=== PATIENT | male | born 1980 | race Caucasian/White ===

== ENCOUNTER 2018-11-11 11:28 | Inpatient (IN) ==
[2018-11-11] MEDS ORDERED: Morphine Inj 4 MG/ML Vial IV.PUSH ONE (12:12)
[2018-11-11] MEDS ORDERED: Sod Chloride 0.9% Inj 1,000 ML IV.SIG ONE (12:12)
--- NOTE | 2018-11-11 12:19 | ED ---
HPI General Chief Complaint: Abdominal Pain Stated Complaint: GI Time Seen by Provider: 11/11/18 12:01 Source: patient and RN notes reviewed Mode of arrival: ambulatory Limitations: no limitations History of Present Illness HPI narrative: 38-year-old male presents to the emergency department for evaluation of dark urine, white stools, yellowing of the skin and eyes. Patient was here recently on November 03, 2018 for asthma exacerbation. At that time, his LFTs were noted to be elevated, but he did not have any of the other symptoms at that time. However, for the past 3 days, he has noticed decreased appetite, yellowing of the skin and eyes, dark urine, light stools, right upper quadrant abdominal pain. He states he still feels short of breath due to asthma exacerbation and has hoarseness as well. Patient denies any alcohol use. He denies any other symptoms or complaints. Moderate severity. MD complaint: Reports abdominal pain Onset (ago): day(s) (3) Pain Consistency: constant Location: Reports RUQ Severity: moderate Severity scale (1-10): 4 Quality: Reports aching Radiation: Reports none Migration to: Reports no migration Relieving factors: nothing Exacerbating factors: nothing Associated symptoms: Denies diarrhea, fever, chills, constipation, hematemesis and hematochezia Related Data Home Medications Medication Instructions Recorded Confirmed albuterol sulfate [Ventolin HFA] 1 puff INHALATION Q4-6H PRN 11/03/18 11/11/18 azithromycin [Zithromax] 250 mg PO DAILY 11/11/18 11/11/18 tiotropium bromide [Spiriva 2 puff INHALATION DAILY 11/11/18 11/11/18 Respimat] Previous Rx's Medication Instructions Recorded benzonatate [Tessalon Perles] 100 mg PO TID PRN #10 cap 11/03/18 Allergies Allergy/AdvReac Type Severity Reaction Status Date / Time propofol Allergy Seizures Verified 11/11/18 12:17 Review of Systems ROS: all other systems reviewed are negative [facility] Social History Social History Substance History: No History of Abuse Second Hand Smoke Exposure: No Smoking Status: Never smoker How Often Do You Have a Drink Containing Alcohol: Monthly or less Recent Travel in [facility] within the Last 8 Weeks: No Recent Out of Country Travel within the Last 8 Weeks: No Exam Narrative Exam Narrative: GENERAL: Well-nourished, well-developed male patient, afebrile. Patient is jaundiced SKIN: Focused skin assessment warm/dry. HEAD: Normocephalic. Atraumatic EYES: No injection or drainage. NECK: Supple, trachea midline. No JVD or lymphadenopathy. CARDIOVASCULAR: Regular rate and rhythm without murmurs, gallops, or rubs. RESPIRATORY: Breath sounds equal bilaterally. No accessory muscle use. Lung sounds are clear to auscultation GASTROINTESTINAL: Abdomen soft and nondistended. Patient has tenderness to palpation over the right upper quadrant. MUSCULOSKELETAL: No cyanosis, or edema. BACK: Nontender without obvious deformity. No CVA tenderness. Course Initial Documented Vital Signs Temperature 99.2 F 11/11/18 11:56 Pulse Rate 92 H 11/11/18 11:56 Respiratory Rate 18 11/11/18 11:56 Blood Pressure 151/89 H 11/11/18 11:56 Pulse Oximetry 96 11/11/18 11:56 Last Documented Vital Signs Temperature 99.2 F 11/11/18 11:56 Pulse Rate 98 H 11/11/18 15:44 Respiratory Rate 16 11/11/18 15:44 Blood Pressure 136/67 11/11/18 15:44 Pulse Oximetry 100 11/11/18 15:44 Medical Decision Making DAMASO Attestation DAMASO supervised visit: Yes Attestation: I, Dr. Hinson, have reviewed the advance practice practitioner's documentation and am in agreement, met with the patient face to face, made the diagnosis, and the medical decision making was done by me. *My assessment and Findings: Patient seen and evaluated with PA, please see PA note for further details. Here with right upper quadrant abdominal pains, appearing jaundice, with dark colored urine and light stools. Lab work shows significant liver enzyme abnormalities. CAT scan is showing a questionable stone with in the gallbladder and bile duct area, and possible signs of cholecystitis. Ultrasound shows some spots in the liver as well that are concerning and needs further characterization using MRI. At this point, case had been discussed with general surgery and that they are recommending medical admission for further evaluation. MDM Narrative Medical decision making narrative: 38-year-old male presents to the emergency department for jaundice, decreased appetite, right upper quadrant abdominal pain. IV access obtained. CBC, CMP, lipase, magnesium, PTT, PT/INR are ordered and pending. Ultrasound of the right upper quadrant is ordered and pending. CT abdomen/pelvis with IV contrast is ordered and pending. Patient is given normal saline 1 L IV bolus, morphine 4 mg IV, Zofran 4 mg IV. Patient is given DuoNeb x3 for asthma. CBC shows no acute abnormality. CMP shows elevated bilirubin 8.7, AST 833, ALT 2809. Lipase is 127. Magnesium is 2.5. PTT is 27.2. PT/INR is 11.1/1.1. US shows Fatty liver with 2 areas of hypoechogenicity somewhat masslike may be focal sparing, however further characterization with abdominal MRI with and without contrast is suggested which could be done as a nonemergent study to further evaluate and exclude underlying mass. The patient's CT examination was negative without demonstrable masses; No definite gallstones by ultrasound, however questionable small stones seen on the patient's CT examination and the gallbladder wall appears slightly thickened with questionable trace of pericholecystic fluid. Possibility of cholecystitis should be entertained in appropriate clinical setting. CT abdomen/pelvis shows Questionable tiny stone within the gallbladder appears slightly distended with haziness of the Gerota's fascia on the right side partially extending into the anterior perinephric space and Morison's pouch. The exact source is not certain, however inflammatory process is a primary consideration. The liver appears fatty. General surgeon and hospitalist are paged. Talk to Dr. Alvares, on-call for general surgery who recommends the patient be admitted with a consult to him. Patient is admitted to Dr. Mercado. Medical Screen Exam Complete: Yes Emergency Medical Condition: Yes Differential Diagnosis Differential Diagnosis: Cholelithiasis versus choledocholithiasis versus bile duct obstruction versus acute liver failure Medical Records Medical records reviewed: Yes I reviewed the patient's medical records. Lab Data Result diagrams: 11/11/18 12:30 11/11/18 12:30 Lab Results 11/11/18 11/11/18 11/11/18 Range/Units 12:30 12:30 12:30 WBC 5.6 (4.0-11.0) th/mm3 RBC 5.45 (4.50-5.90) mil/mm3 Hgb 15.7 (13.0-17.0) gm/dL Hct 47.1 (39.0-51.0) % MCV 86.4 (80.0-100.0) fL MCH 28.9 (27.0-34.0) pg MCHC 33.4 (32.0-36.0) % RDW 15.4 (11.6-17.2) % Plt Count 292 D (150-450) th/mm3 MPV 7.4 (7.0-11.0) fL Neut % (Auto) 39.1 (16.0-70.0) % Lymph % (Auto) 45.5 H (9.0-44.0) % Crane % (Auto) 11.4 H (0.0-8.0) % Eos % (Auto) 2.6 (0.0-4.0) % Baso % (Auto) 1.4 (0.0-2.0) % Neut # (Auto) 2.2 (1.8-7.7) th/mm3 Lymph # (Auto) 2.6 (1.0-4.8) th/mm3 Crane # (Auto) 0.6 (0.0-0.9) th/mm3 Eos # (Auto) 0.1 (0.0-0.4) th/mm3 Baso # (Auto) 0.1 (0.0-0.2) th/mm3 WBC Differential . Differential Comment Auto diff final PT 11.1 (9.8-11.6) sec INR 1.1 Ratio APTT 27.2 (23.4-31.7) sec Sodium 139 (136-145) meq/L Potassium 4.3 (3.5-5.1) meq/L Chloride 106 (98-107) meq/L Carbon Dioxide 27.2 (21.0-32.0) meq/L Anion Gap 6 (5-15) meq/L BUN 8 (7-18) mg/dL Creatinine 0.96 (0.60-1.30) mg/dL Estimated GFR 89 (>89) mL/min Random Glucose 93 (74-106) mg/dL Calcium 8.1 L (8.5-10.1) mg/dL Magnesium 2.5 (1.5-2.5) mg/dL Total Bilirubin 8.7 H (0.2-1.0) mg/dL AST 833 H (15-37) U/L ALT 2809 H (12-78) U/L Alkaline Phosphatase 156 H (45-117) U/L Total Protein 7.8 (6.4-8.2) g/dL Albumin 3.5 (3.4-5.0) g/dL Lipase 127 (73-393) U/L Urine Color (Yellw/Straw) Urine Clarity (Clear) Urine pH (5.0-8.5) Ur Specific [place] (1.002-1.035) Urine Protein (Neg-Trace) mg/dL Urine Glucose (UA) (Negative) mg/dL Urine Ketones (Negative) mg/dL Urine Occult Blood (Negative) Urine Nitrate (Negative) Urine Bilirubin (Negative) Urine Ictotest (Negative) Urine Urobilinogen (Less than 2) mg/dL Ur Leukocyte Esterase (Negative) Urine RBC (0-3) /hpf Urine WBC (0-5) /hpf Ur Squamous Epith Cells (0-5) /hpf Urine Mucus (Occasional) /lpf Micro UA Comment Ur Microscopic Review Urine Culture Comments 11/11/18 Range/Units 12:30 WBC (4.0-11.0) th/mm3 RBC (4.50-5.90) mil/mm3 Hgb (13.0-17.0) gm/dL Hct (39.0-51.0) % MCV (80.0-100.0) fL MCH (27.0-34.0) pg MCHC (32.0-36.0) % RDW (11.6-17.2) % Plt Count (150-450) th/mm3 MPV (7.0-11.0) fL Neut % (Auto) (16.0-70.0) % Lymph % (Auto) (9.0-44.0) % Crane % (Auto) (0.0-8.0) % Eos % (Auto) (0.0-4.0) % Baso % (Auto) (0.0-2.0) % Neut # (Auto) (1.8-7.7) th/mm3 Lymph # (Auto) (1.0-4.8) th/mm3 Crane # (Auto) (0.0-0.9) th/mm3 Eos # (Auto) (0.0-0.4) th/mm3 Baso # (Auto) (0.0-0.2) th/mm3 WBC Differential Differential Comment PT (9.8-11.6) sec INR Ratio APTT (23.4-31.7) sec Sodium (136-145) meq/L Potassium (3.5-5.1) meq/L Chloride (98-107) meq/L Carbon Dioxide (21.0-32.0) meq/L Anion Gap (5-15) meq/L BUN (7-18) mg/dL Creatinine (0.60-1.30) mg/dL Estimated GFR (>89) mL/min Random Glucose (74-106) mg/dL Calcium (8.5-10.1) mg/dL Magnesium (1.5-2.5) mg/dL Total Bilirubin (0.2-1.0) mg/dL AST (15-37) U/L ALT (12-78) U/L Alkaline Phosphatase (45-117) U/L Total Protein (6.4-8.2) g/dL Albumin (3.4-5.0) g/dL Lipase (73-393) U/L Urine Color Yellow (Yellw/Straw) Urine Clarity Clear (Clear) Urine pH 5.5 (5.0-8.5) Ur Specific [place] 1.021 (1.002-1.035) Urine Protein 30 H (Neg-Trace) mg/dL Urine Glucose (UA) Negative (Negative) mg/dL Urine Ketones Trace H (Negative) mg/dL Urine Occult Blood Negative (Negative) Urine Nitrate Negative (Negative) Urine Bilirubin Large H (Negative) Urine Ictotest Positive H (Negative) Urine Urobilinogen 1.0 (Less than 2) mg/dL Ur Leukocyte Esterase Negative (Negative) Urine RBC Less than 1 (0-3) /hpf Urine WBC 3 (0-5) /hpf Ur Squamous Epith Cells <1 (0-5) /hpf Urine Mucus Few H (Occasional) /lpf Micro UA Comment Culture not ind Ur Microscopic Review Microscopic reviewed Urine Culture Comments Culture not ind Imaging Data Radiologist's impression: Gallbladder Ultrasound 11/11/18 12:12 CONCLUSION: 1. Fatty liver with 2 areas of hypoechogenicity somewhat masslike may be focal sparing, however further characterization with abdominal MRI with and without contrast is suggested which could be done as a nonemergent study to further evaluate and exclude underlying mass. The patient's CT examination was negative without demonstrable masses. 2. No definite gallstones by ultrasound, however questionable small stones seen on the patient's CT examination and the gallbladder wall appears slightly thickened with questionable trace of pericholecystic fluid. Possibility of cholecystitis should be entertained in appropriate clinical setting. Abdomen/Pelvis CT 11/11/18 12:39 CONCLUSION: Questionable tiny stone within the gallbladder appears slightly distended with haziness of the Gerota's fascia on the right side partially extending into the anterior perinephric space and Morison's pouch. The exact source is not certain, however inflammatory process is a primary consideration. The liver appears fatty. Discharge Plan Discharge Disposition Patient Disposition: ED Admit(ED Internal Use Only) Discharge Order Discharge Orders: ED Use Only Admit Order (Routine); Ordered 11/11/18 Ordered By: Shelby Roman Discharge Details Diagnosis: Acute cholecystitis, Elevated LFTs Physicians Team ED Provider: Kayli Hinson ED Midlevel Provider: Shelby Roman Primary Care Provider: Shannon William Attending Provider: Herberth Oro Status ED Status: Admitted Patient
[2018-11-11 12:37] LABS: Baso # (Auto) 0.1 th/mm3 (0.0-0.2); Baso % (Auto) 1.4 % (0.0-2.0); Eos # (Auto) 0.1 th/mm3 (0.0-0.4); Eos % (Auto) 2.6 % (0.0-4.0); Hematocrit 47.1 % (39.0-51.0); Hemoglobin 15.7 gm/dL (13.0-17.0); Lymph # (Auto) 2.6 th/mm3 (1.0-4.8); Lymph % (Auto) 45.5 % (9.0-44.0); Mean Corpuscular HGB Conc 33.4 % (32.0-36.0); Mean Corpuscular Hemoglobin 28.9 pg (27.0-34.0); Mean Corpuscular Volume 86.4 fL (80.0-100.0); Mean Platelet Volume 7.4 fL (7.0-11.0); Mono # (Auto) 0.6 th/mm3 (0.0-0.9); Mono % (Auto) 11.4 % (0.0-8.0); Neut # (Auto) 2.2 th/mm3 (1.8-7.7); Neut % (Auto) 39.1 % (16.0-70.0); Platelet Count 292 th/mm3 (150-450); Red Blood Count 5.45 mil/mm3 (4.50-5.90); Red Cell Distribution Width 15.4 % (11.6-17.2); White Blood Count 5.6 th/mm3 (4.0-11.0)
[2018-11-11 12:45] LABS: Activated Partial Thrombo Time 27.2 sec (23.4-31.7); INR 1.1 Ratio; Prothrombin Time 11.1 sec (9.8-11.6)
[2018-11-11 13:09] LABS: Alanine Aminotransferase 2809 U/L (12-78); Alkaline Phosphatase 156 U/L (45-117); Total Protein 7.8 g/dL (6.4-8.2)
[2018-11-11 13:16] LABS: Bilirubin,Urine Large (Negative); Clarity,Urine Clear (Clear); Color,Urine Yellow (Yellw/Straw); Glucose,Urine (UA) Negative (Negative); Leukocyte Esterase,Urine Negative (Negative); Nitrite,Urine Negative (Negative); PH,Urine 5.5 (5.0-8.5)
[2018-11-11 13:18] LABS: Ictotest,Urine Positive (Negative); Mucus,Urine Few /lpf (Occasional); Squamous Epithelial Cell,Urine <1 /hpf (0-5)
[2018-11-11 13:19] LABS: Specific Gravity,Urine 1.021 (1.002-1.035)
[2018-11-11 13:34] LABS: Albumin 3.5 g/dL (3.4-5.0); Anion Gap 6 meq/L (5-15); Aspartate Aminotransferase 833 U/L (15-37); Blood Urea Nitrogen 8 mg/dL (7-18); Calcium 8.1 mg/dL (8.5-10.1); Carbon Dioxide 27.2 meq/L (21.0-32.0); Chloride 106 meq/L (98-107); Glomerular Filtration Rate 89 mL/min (>89); Glucose,Random 93 mg/dL (74-106); Lipase 127 U/L (73-393); Magnesium 2.5 mg/dL (1.5-2.5); Potassium 4.3 meq/L (3.5-5.1); Sodium 139 meq/L (136-145)
--- NOTE | 2018-11-11 13:50 | CT ---
EXAM DATE: 11/11/2018 1:41 PM EST AGE/SEX: 38 years / Male INDICATIONS: Right upper abdomen pain for four days. CLINICAL DATA: This is the patient's initial encounter. Patient reports that signs and symptoms have been present for 4 - 6 days and indicates a pain score of 4/10. MEDICAL/SURGICAL HISTORY: Asthma. Appendectomy. ORAL CONTRAST: No oral contrast ingested. RADIATION DOSE: 15.04 CTDI (mGy) COMPARISON: No prior exams available for comparison. TECHNIQUE: Multiple contiguous axial images were obtained through the abdomen and pelvis following b olus infusion of 95 ml Omnipaque 350 (iohexol) nonionic water-soluble contrast as a single exam dos e. No oral contrast ingested. Using automated exposure control and adjustment of the mA and/or kV ac cording to patient size, radiation dose was kept as low as reasonably achievable to obtain optimal di agnostic quality images. DICOM format image data is available electronically for review and comparis on. FINDINGS: Abdomen CT: The pancreas, kidneys, adrenals are unremarkable. There is no evidence for any appreciable pathologi kennedy adenopathy, free fluid, or bowel obstruction. Slight splenomegaly is present with spleen measuri ng 14.0 in craniocaudal dimension without focal lesions or technique. There is thickening of the Gerota's fascia with slight haziness of adjacent fat extending to anterior perinephric space. The exa ct source or etiology is not certain and the pancreas appears intact. Clinical correlation is suggest ed to exclude possibility of pancreatitis. The gallbladder demonstrates questionable tiny stone withi n it measures 8.7 cm in AP diameter. [address]: There is no evidence for mass, abscess formation, or any significant adenopathy within the pelvis. CONCLUSION: Questionable tiny stone within the gallbladder appears slightly distended with haziness o f the Gerota's fascia on the right side partially extending into the anterior perinephric space and M orison's pouch. The exact source is not certain, however inflammatory process is a primary considerat ion. The liver appears fatty. Electronically signed by: Faiza Betancourt MD Board Certified Radiologist 11/11/2018 1:48 PM EST
--- NOTE | 2018-11-11 14:23 | US ---
EXAM DATE: 11/11/2018 2:15 PM EST AGE/SEX: 38 years / Male INDICATIONS: Right upper quadrant pain. CLINICAL DATA: This is the patient's initial encounter. Patient reports that signs and symptoms have been present for 4 - 6 days and indicates a pain score of 3/10. MEDICAL/SURGICAL HISTORY: . Asthma. . Appendectomy. COMPARISON: [facility] [place], CT ABDOMEN & PELVIS W CONTRAST, 11/11/2018. . MEASUREMENTS: Liver:__ 17.1 cm. Common Bile Duct:__ 6mm. FINDINGS: Liver: The liver appears echogenic and fatty infiltrated with 2 separate hypoechoic areas somewhat m asslike right hepatic lobe measuring 1.1 cm and 2.8 cm in size. These may be focal areas of focal spa ring since the patient's CT examination did not demonstrate any masses Portal Vein: Hepatopedal flow seen in portal vein. Common Duct: No intraluminal mass or stone visualized. Gallbladder: . The gallbladder wall appears slightly thickened without definite stone, however the p atient's CT examination demonstrated a questionable tiny stone and there is questionable slight peric holecystic fluid. Pancreas: The visualized portions are within normal limits Right Kidney: Normal echogenicity and cortical thickness. No mass or hydronephrosis. Other: None. CONCLUSION: 1. Fatty liver with 2 areas of hypoechogenicity somewhat masslike may be focal sparing, however furt her characterization with abdominal MRI with and without contrast is suggested which could be done as a nonemergent study to further evaluate and exclude underlying mass. The patient's CT examination wa s negative without demonstrable masses. 2. No definite gallstones by ultrasound, however questionable small stones seen on the patient's CT examination and the gallbladder wall appears slightly thickened with questionable trace of pericholec ystic fluid. Possibility of cholecystitis should be entertained in appropriate clinical setting. Electronically signed by: Faiza Betancourt MD Board Certified Radiologist 11/11/2018 2:22 PM EST
[2018-11-11] MEDS ORDERED: Piperacil/Tazo 3.375 GM Premix 3.375 GM/50 ML PIGGYBACK IV.SIG ONE (15:25)
--- NOTE | 2018-11-11 16:56 | P.HPIM ---
History of Present Illness Primary Care Physician: Shannon William DO History of Present Illness: Mr. Penn is a pleasant 38 y/o male with asthma who [place] [facility] for jaundice, nausea/vomiting, abd pain. He was seen in the ED on 11/03/18 with an asthma exacerbation. He had been having increased SOB and wheezing for 4-5 days prior to being seen in the ED. He and was treated with steroid taper, z-katherine, duonebs, and Tessalon pearls. He states that he had gotten a new cat and was having allergy issues prior to the onset of his asthma exacerbation. Denies any flu or cold symptoms prior to the asthma exacerbation starting. His labs in the ED on 11/03 noted an elevation in his LFTs with Tbili 1.4, AST 767, ALT 1487, AlkPhos 119. After being in the ED he reported increased soreness of the abdomen, sore throat, hoarseness of voice, nausea over the last 5 days. Then 3 days ago he had noted increased darkening of the urine, light color in his stool and jaundice. He noted increased nausea and vomiting with oral intake. He has had more side sided abdominal pain and cramping but he attributed this to soreness from coughing so much but his RUQ is very tender to the touch. He presented back to the ED on 11/11/18 with these new complaints. His repeat labs in the ED on 11/11 noted Tbili 8.7, AST 833, ALT 2809, AlkPhos 156. He had a CT Abd/Pelvis which noted questionable tiny stone within the gallbladder appears slightly distended with haziness of the Gerota's fascia on the right side partially extending into the anterior perinephric space and Morison's pouch, and the liver appears fatty. Gallbladder Ultrasound was then performed and noted a fatty liver with 2 areas of hypoechogenicity somewhat masslike may be focal sparing, no definite gallstones by ultrasound, however questionable small stones seen on the patient's CT examination and the gallbladder wall appears slightly thickened with questionable trace of pericholecystic fluid. Possibility of cholecystitis should be entertained in appropriate clinical setting. He denies any recent travel out of the country. He travelled to [place] a few months back. He works from home and has not had any ill contacts. Past Medical Hx: Asthma Hx of H. pylori PUD Past Surgical Hx: Appendectomy Incisional hernia repair Family Hx: Mother had hx of hepatitis as a child Social Hx: Denies any regular alcohol use Denies any tobacco use or illicit drug use Diagnosis (1) Elevated LFTs: (2) Abdominal pain: (3) Nausea & vomiting: (4) Asthma: Inpatient Certification Inpatient Certification: I certify that the inpatient services were ordered in accordance with Medicare regulations governing the order. This includes certification that hospital inpatient services are reasonable and necessary and in the case of services not specified as inpatient-only under 42 CFR 419.22(n), that they are appropriately provided as inpatient services in accordance to with the 2-midnight benchmark under 43 CFR 412.3(e) Estimated Total Length of Stay (Days): 3 Plans for Post Hospital Care: Home Medications and Allergies Allergies Allergy/AdvReac Type Severity Reaction Status Date / Time propofol Allergy Seizures Verified 11/11/18 12:17 Home Medications Medication Instructions Recorded Confirmed Type albuterol sulfate [Ventolin HFA] 1 puff INHALATION Q4-6H PRN 11/03/18 11/11/18 History azithromycin [Zithromax] 250 mg PO DAILY 11/11/18 11/11/18 History tiotropium bromide [Spiriva 2 puff INHALATION DAILY 11/11/18 11/11/18 History Respimat] Active Medications: Active Medications Al Hydroxide/Mg Hydroxide (Milk Of Garret Adams) 30 ml PO Q12H PRN PRN Reason: Mild Constipation Sodium Chloride (Ns Inj) 1,000 mls @ 100 mls/hr IV.CONT .Q10H LYNDSAY Ondansetron HCl (Zofran Inj) 4 mg IV.PUSH Q6H PRN PRN Reason: NAUSEA OR VOMITING Senna/Docusate Sodium (Agnieszka-Colace) 1 tab PO BID LYNDSAY Sodium Chloride (Ns Flush) 2 ml IV.FLUSH PRN PRN PRN Reason: FLUSH AFTER USING IV ACCESS Sodium Chloride (Ns Flush) 2 ml IV.FLUSH BID LYNDSAY Sodium Chloride (Ns Flush) 2 ml IV.FLUSH PRN PRN PRN Reason: FLUSH AFTER USING IV ACCESS Physical Exam Vital signs: Last Vital Signs Temp 99.2 F 11/11/18 11:56 Pulse 98 H 11/11/18 15:44 Resp 16 11/11/18 15:44 BP 136/67 11/11/18 15:44 Pulse Ox 100 11/11/18 15:44 Narrative: GENERAL: NAD, AAOx3 SKIN: Warm and dry. HEENT: Atraumatic. Normocephalic. Pupils equal and round. Scleral icterus. No injection or drainage. No nasal bleeding or discharge. Mucous membranes pink and moist. NECK: Trachea midline. No JVD. CARDIO: Regular rate and rhythm. RESP: No accessory muscle use. Clear to auscultation. Breath sounds equal bilaterally. ABD: +BS, soft, RUQ tenderness with minimal palpation, nondistended. EXT: Extremities without clubbing, cyanosis, or edema. No obvious deformities. NEURO: Awake and alert. No obvious cranial nerve deficits. Motor grossly within normal limits. Five out of 5 muscle strength in the arms and legs. Normal speech. PSYCHIATRIC: Appropriate mood and affect; insight and judgment normal. Results Labs CBC & Chem 7: 11/12/18 07:23 11/13/18 05:47 Imaging Gallbladder Ultrasound 11/11/18 12:12 CONCLUSION: 1. Fatty liver with 2 areas of hypoechogenicity somewhat masslike may be focal sparing, however further characterization with abdominal MRI with and without contrast is suggested which could be done as a nonemergent study to further evaluate and exclude underlying mass. The patient's CT examination was negative without demonstrable masses. 2. No definite gallstones by ultrasound, however questionable small stones seen on the patient's CT examination and the gallbladder wall appears slightly thickened with questionable trace of pericholecystic fluid. Possibility of cholecystitis should be entertained in appropriate clinical setting. Abdomen/Pelvis CT 11/11/18 12:39 CONCLUSION: Questionable tiny stone within the gallbladder appears slightly distended with haziness of the Gerota's fascia on the right side partially extending into the anterior perinephric space and Morison's pouch. The exact source is not certain, however inflammatory process is a primary consideration. The liver appears fatty. Caprini VTE Risk Assessment Caprini VTE Risk Assessment: No/Low Risk (score <= 1) Caprini Risk Assessment Model: Point Value = 1 Point Value = 2 Point Value = 3 Point Value = 5 Age 41-60 Minor surgery BMI > 25 kg/m2 Swollen legs Varicose veins or History of unexplained or recurrent spontaneous Oral contraceptives or hormone replacement Sepsis (< 1 month) Serious lung disease, including pneumonia (< 1 month) Abnormal pulmonary function Acute myocardial infarction Congestive heart failure (< 1 month) History of inflammatory bowel disease Medical patient at bed rest Age 61-74 Arthroscopic surgery Major open surgery (> 45 min) Laparoscopic surgery (> 45 min) Malignancy Confined to bed (> 72 hours) Immobilizing plaster cast Central venous access Age >= 75 History of VTE Family history of VTE Factor V Leiden Prothrombin [id number] Lupus anticoagulant Anticardiolipin antibodies Elevated serum homocysteine Heparin-induced thrombocytopenia Other congenital or acquired thrombophilia Stroke (< 1 month) Elective arthroplasty Hip, pelvis, or leg fracture Acute spinal cord injury (< 1 month) Prophylaxis Regimen: Total Risk Factor Score Risk Level Prophylaxis Regimen 0-1 Low Early ambulation 2 Moderate Order ONE of the following: *Sequential Compression Device (SCD) *Heparin 5000 units SQ BID 3-4 Higher Order ONE of the following medications: *Heparin 5000 units SQ TID *Enoxaparin/Lovenox 40 mg SQ daily (WT < 150 kg, CrCl > 30 mL/min) *Enoxaparin/Lovenox 30 mg SQ daily (WT < 150 kg, CrCl > 10-29 mL/min) *Enoxaparin/Lovenox 30 mg SQ BID (WT < 150 kg, CrCl > 30 mL/min) AND/OR *Sequential Compression Device (SCD) 5 or more Highest Order ONE of the following medications: *Heparin 5000 units SQ TID (Preferred with Epidurals) *Enoxaparin/Lovenox 40 mg SQ daily (WT < 150 kg, CrCl > 30 mL/min) *Enoxaparin/Lovenox 30 mg SQ daily (WT < 150 kg, CrCl > 10-29 mL/min) *Enoxaparin/Lovenox 30 mg SQ BID (WT < 150 kg, CrCl > 30 mL/min) AND *Sequential Compression Device (SCD) Assessment and Plan Assessment (1) Elevated LFTs: Code(s): R94.5 - Abnormal results of liver function studies Status: Acute (2) Abdominal pain: Code(s): R10.9 - Unspecified abdominal pain Status: Acute (3) Nausea & vomiting: Code(s): R11.2 - Nausea with vomiting, unspecified Status: Acute (4) Asthma: Code(s): J45.909 - Unspecified asthma, uncomplicated Status: Chronic Plan Elevated LFTs/Jaundice Abdominal pain/Nausea/vomiting Possible cholecystitis - Pt is a 38 y/o male with asthma who presented [place] [facility] for jaundice, nausea/vomiting, abd pain. He was seen in the ED on 11/03/18 with an asthma exacerbation. His labs in the ED on 11/03 noted an elevation in his LFTs with Tbili 1.4, AST 767, ALT 1487, AlkPhos 119. After being in the ED he reported increased soreness of the abdomen, sore throat, hoarseness of voice, nausea over the last 5 days. Then 3 days ago he had noted increased darkening of the urine, light color in his stool and jaundice. He noted increased nausea and vomiting with oral intake. He has had more side sided abdominal pain and cramping but he attributed this to soreness from coughing so much but his RUQ is very tender to the touch. - He presented back to the ED on 11/11/18 with these new complaints. His repeat labs in the ED on 11/11 noted Tbili 8.7, AST 833, ALT 2809, AlkPhos 156. - CT Abd/Pelvis which noted questionable tiny stone within the gallbladder appears slightly distended with haziness of the Gerota's fascia on the right side partially extending into the anterior perinephric space and Morison's pouch , and the liver appears fatty. - Gallbladder Ultrasound was then performed and noted a fatty liver with 2 areas of hypoechogenicity somewhat masslike may be focal sparing, no definite gallstones by ultrasound, however questionable small stones seen on the patient' s CT examination and the gallbladder wall appears slightly thickened with questionable trace of pericholecystic fluid. Possibility of cholecystitis should be entertained in appropriate clinical setting. - Give IVF - Consult General Surgery - Check for other possible viral etiologies for the pts elevated LFTs, hepatitis panel, EBV/monospot, Tylenol and salicylate level. Check urine drug screen as well. - MRCP w&w/o contrast - Repeat LFTs in AM - Keep pt NPO until seen by GS - Pain control PRN - Antiemetics Asthma with recent exacerbation - Duonebs Q4H scheduled and Q2H PRN - tessalon pearls PRN - Spiriva
[2018-11-11] MEDS ORDERED: Morphine Inj 4 MG/ML Vial IV.PUSH PRN (17:01)
[2018-11-11] MEDS: Sod Chloride 0.9% Inj 1,000 ML IV.CONT SCH (18:04)
[2018-11-11 18:07] LABS: Mono Screen Neg (Neg)
--- NOTE | 2018-11-11 18:07 | MR ---
EXAM DATE: 11/11/2018 5:48 PM EST AGE/SEX: 38 years / Male INDICATIONS: Abdominal pain. CLINICAL DATA: This is the patient's initial encounter. Patient reports that signs and symptoms have been present for 1 day and indicates a pain score of 6/10. MEDICAL/SURGICAL HISTORY: Asthma. Appendectomy. Inguinal hernia repair. COMPARISON: No prior exams available for comparison. TECHNIQUE: Multiplanar, multisequence images of the abdomen were obtained without contrast including dedicated cholangiographic images. FINDINGS: The common bile duct measures 2 to 3 mm in size not dilated and intrahepatic ducts are normal size. T he pancreatic duct is also normal size. Gallstones are present and the gallbladder appears distended and seen on the patient's CT examination. There is haziness with some fluid in the anterior perinephr ic space extending to Gerota's fascia and etiology is not certain, however the pancreas itself appear s intact. Possibility of acute cholecystitis should be entertained. The liver does not demonstrate an y lesions based on this examination and the questioned lesion on the patient's prior ultrasound may h ave been artifactually created. On the chemical shift imaging the liver also does not appear particul rao fatty even though on ultrasound it appeared fatty. There are areas of inhomogeneous bright signa l within the thoracic vertebrae involving T9 and T11 vertebrae on the T2 coronal sequence. The T11 le mir appears to be probably focal fat as the signal drops on the chemical shift imaging. The T9 lesio n could also be degenerative marrow change not adequately characterized by this technique. CONCLUSION: 1. Cholelithiasis and slightly distended gallbladder possibility of cholecystitis should be entertai betsy with slight inflammatory change involving Gerota's fascia on the right as seen on the patient's C T examination. 2. The liver does not appear fatty based on this examination although the ultrasound has the appeara nce of fatty liver and the questioned mass on the patient's ultrasound may have been artifactually cr eated or possibly focal sparing not clearly visualized by this technique. 3. There are areas of bright signal within T9 and T11 vertebrae not adequately characterized most li ben benign and a follow-up is suggested with thoracic spine MRI in 3-6 months. Electronically signed by: Faiza Betancourt MD Board Certified Radiologist 11/11/2018 6:06 PM EST
[2018-11-11 19:04] LABS: Amphetamine Screen,Urine Neg (Neg); Barbiturate Screen,Urine Neg (Neg); Cannabinoid Screen,Urine Neg (Neg); Cocaine Screen,Urine Neg (Neg)
[2018-11-11 19:16] LABS: Opiate Screen,Urine Neg (Neg)
[2018-11-11] MEDS: Senna/Docusate Sodium 8.6/50 MG Tablet PO SCH (20:10)
[2018-11-11] MEDS: Benzonatate 100 MG Capsule PO PRN (20:10)
[2018-11-11 20:13] LABS: Hepatitis A IgM Antibody Reactive (Nonreactive)
[2018-11-11 20:14] LABS: Hepatitits B Surface Antigen Nonreactive (Nonreactive)
[2018-11-12] MEDS: guaiFENesin/Codeine Syrup 200 MG/20 MG 10 ML UDC PO PRN ×4 (00:54→20:28)
[2018-11-12] MEDS: Sod Chloride 0.9% Inj 1,000 ML IV.CONT SCH ×3 (03:36→23:53)
[2018-11-12 07:55] LABS: Hematocrit 41.5 % (39.0-51.0); Hemoglobin 14.3 gm/dL (13.0-17.0); Mean Corpuscular HGB Conc 34.4 % (32.0-36.0); Mean Corpuscular Hemoglobin 29.7 pg (27.0-34.0); Mean Corpuscular Volume 86.3 fL (80.0-100.0); Mean Platelet Volume 7.7 fL (7.0-11.0); Platelet Count 270 th/mm3 (150-450); Red Blood Count 4.81 mil/mm3 (4.50-5.90); Red Cell Distribution Width 15.6 % (11.6-17.2); White Blood Count 3.8 th/mm3 (4.0-11.0)
[2018-11-12 08:23] LABS: Albumin 3.1 g/dL (3.4-5.0); Anion Gap 6 meq/L (5-15); Aspartate Aminotransferase 435 U/L (15-37); Blood Urea Nitrogen 7 mg/dL (7-18); Calcium 7.7 mg/dL (8.5-10.1); Carbon Dioxide 23.8 meq/L (21.0-32.0); Chloride 110 meq/L (98-107); Glomerular Filtration Rate Greater Than 89 mL/min (>89); Glucose,Random 77 mg/dL (74-106); Potassium 3.9 meq/L (3.5-5.1); Sodium 140 meq/L (136-145)
[2018-11-12 08:27] LABS: Alanine Aminotransferase 1863 U/L (12-78); Alkaline Phosphatase 127 U/L (45-117)
[2018-11-12 08:50] LABS: Lymphocytes 43 % (9-44); Monocytes 8 % (0-8); Platelet Estimate Normal (Normal); Platelet Morphology Normal (Normal); RBC Morphology Normal (Normal)
--- NOTE | 2018-11-12 09:20 | P.PNIM ---
Subjective Interval history: Pt feeling slightly better today His abd discomfort is lessened Denies any nausea/vomiting Afebrile Complains of a dry cough and still with hoarseness of voice. Physical Exam Vital signs: Last Vital Signs Temp 98.5 F 11/12/18 08:00 Pulse 81 11/12/18 08:00 Resp 16 11/12/18 08:00 BP 135/76 11/12/18 08:00 Pulse Ox 95 11/12/18 08:00 Narrative: GENERAL: NAD, AAOx3 HEENT: Scleral icterus. CARDIO: Regular rate and rhythm. RESP: Clear to auscultation. Breath sounds equal bilaterally. ABD: +BS, soft, RUQ tenderness with palpation, nondistended. EXT: No edema. No obvious deformities. Results Labs CBC & Chem 7: 11/12/18 07:23 11/13/18 05:47 Imaging Cholangiopancreatography MRI 11/11/18 00:00 CONCLUSION: 1. Cholelithiasis and slightly distended gallbladder possibility of cholecystitis should be entertained with slight inflammatory change involving Gerota's fascia on the right as seen on the patient's CT examination. 2. The liver does not appear fatty based on this examination although the ultrasound has the appearance of fatty liver and the questioned mass on the patient's ultrasound may have been artifactually created or possibly focal sparing not clearly visualized by this technique. 3. There are areas of bright signal within T9 and T11 vertebrae not adequately characterized most likely benign and a follow-up is suggested with thoracic spine MRI in 3-6 months. Gallbladder Ultrasound 11/11/18 12:12 CONCLUSION: 1. Fatty liver with 2 areas of hypoechogenicity somewhat masslike may be focal sparing, however further characterization with abdominal MRI with and without contrast is suggested which could be done as a nonemergent study to further evaluate and exclude underlying mass. The patient's CT examination was negative without demonstrable masses. 2. No definite gallstones by ultrasound, however questionable small stones seen on the patient's CT examination and the gallbladder wall appears slightly thickened with questionable trace of pericholecystic fluid. Possibility of cholecystitis should be entertained in appropriate clinical setting. Abdomen/Pelvis CT 11/11/18 12:39 CONCLUSION: Questionable tiny stone within the gallbladder appears slightly distended with haziness of the Gerota's fascia on the right side partially extending into the anterior perinephric space and Morison's pouch. The exact source is not certain, however inflammatory process is a primary consideration. The liver appears fatty. Assessment and Plan Assessment (1) Hepatitis A: Code(s): B15.9 - Hepatitis A without hepatic coma Status: Acute (2) Elevated LFTs: Code(s): R94.5 - Abnormal results of liver function studies Status: Acute (3) Abdominal pain: Code(s): R10.9 - Unspecified abdominal pain Status: Acute (4) Nausea & vomiting: Code(s): R11.2 - Nausea with vomiting, unspecified Status: Acute (5) Asthma: Code(s): J45.909 - Unspecified asthma, uncomplicated Status: Chronic Plan Hepatitis A Elevated LFTs/Jaundice Abdominal pain/Nausea/vomiting - Pt is a 38 y/o male with asthma who presented to the ED at [facility] [place] on 11/11/18 for jaundice, nausea/vomiting, abd pain. He was seen in the ED on 11/03/18 with an asthma exacerbation. His labs in the ED on 11/03 noted an elevation in his LFTs with Tbili 1.4, AST 767, ALT 1487, AlkPhos 119. After being in the ED he reported increased soreness of the abdomen, sore throat, hoarseness of voice, nausea over the last 5 days. Then 3 days ago he had noted increased darkening of the urine, light color in his stool and jaundice. He noted increased nausea and vomiting with oral intake. He has had more side sided abdominal pain and cramping but he attributed this to soreness from coughing so much but his RUQ is very tender to the touch. - He presented back to the ED on 11/11/18 with these new complaints. His repeat labs in the ED on 11/11 noted Tbili 8.7, AST 833, ALT 2809, AlkPhos 156. - CT Abd/Pelvis which noted questionable tiny stone within the gallbladder appears slightly distended with haziness of the Gerota's fascia on the right side partially extending into the anterior perinephric space and Morison's pouch , and the liver appears fatty. - Gallbladder Ultrasound was then performed and noted a fatty liver with 2 areas of hypoechogenicity somewhat masslike may be focal sparing, no definite gallstones by ultrasound, however questionable small stones seen on the patient' s CT examination and the gallbladder wall appears slightly thickened with questionable trace of pericholecystic fluid. Possibility of cholecystitis should be entertained in appropriate clinical setting. - Pt was given IVF overnight - MRCP w&w/o contrast (11/11/18): 1. Cholelithiasis and slightly distended gallbladder possibility of cholecystitis should be entertained with slight inflammatory change involving Gerota's fascia on the right as seen on the patient's CT examination. 2. The liver does not appear fatty based on this examination although the ultrasound has the appearance of fatty liver and the questioned mass on the patient's ultrasound may have been artifactually created or possibly focal sparing not clearly visualized by this technique. 3. There are areas of bright signal within T9 and T11 vertebrae not adequately characterized most likely benign and a follow-up is suggested with thoracic spine MRI in 3-6 months. - Hepatitis panel was positive for Hep A IgM Ab, likely this is the cause for his elevated LFTs and his N/V and abd pain. - Monospot was negative. EBV is pending. Tylenol and salicylate level were negative. Check urine drug screen negative. - Repeat LFTs in AM - Cancel General Surgery consult, the case was discussed with Dr. Kim this morning. - His LFTs are improving this morning, Tbili 8.1, AST 435, ALT 1863, AlkPhos 127 - Advance to full liquid diet this morning and if tolerating to regular diet this afternoon. - Pt will need close outpt followup with his PCP for repeat labs to ensure continued improvement in his LFTs - Discussed Hepatitis A transmission and importance of thoroughly washing all fruits and vegetables as well as ensuring that he cooks meat to the appropriate temperature. Also discussed importance of bathroom cleanliness and washing his hands frequently. - He will also need followup with his PCP to further evaluate these findings on the thoracic spine. - Pain control PRN - Antiemetics Asthma with recent exacerbation - Duonebs Q4H scheduled and Q2H PRN - tessalon pearls PRN - Spiriva Progress Note: Quality VTE Deep Vein Thrombosis/Pulmonary Embolism Present on Admission: No
[2018-11-12] MEDS: Senna/Docusate Sodium 8.6/50 MG Tablet PO SCH ×2 (11:52→20:28)
[2018-11-12] MEDS: Tiotropium Bromide 18 MCG/ACT Inhaler INH SCH (14:51)
[2018-11-12] MEDS: Benzonatate 100 MG Capsule PO PRN (20:28)
[2018-11-13] MEDS: guaiFENesin/Codeine Syrup 200 MG/20 MG 10 ML UDC PO PRN (03:46)
[2018-11-13] MEDS: Benzonatate 100 MG Capsule PO PRN (03:46)
[2018-11-13 06:37] LABS: Albumin 3.1 g/dL (3.4-5.0); Anion Gap 6 meq/L (5-15); Aspartate Aminotransferase 230 U/L (15-37); Blood Urea Nitrogen 3 mg/dL (7-18); Calcium 8.1 mg/dL (8.5-10.1); Carbon Dioxide 26.4 meq/L (21.0-32.0); Chloride 106 meq/L (98-107); Glomerular Filtration Rate Greater Than 89 mL/min (>89); Glucose,Random 103 mg/dL (74-106); Sodium 138 meq/L (136-145)
[2018-11-13 06:46] LABS: Alanine Aminotransferase 1364 U/L (12-78); Alkaline Phosphatase 121 U/L (45-117); Total Protein 6.8 g/dL (6.4-8.2)
--- NOTE | 2018-11-13 08:16 | P.PNIM ---
Subjective Interval history: Pt feeling well today Tolerating oral intake Physical Exam Vital signs: Last Vital Signs Temp 97.9 F 11/13/18 00:00 Pulse 83 11/13/18 03:14 Resp 18 11/13/18 03:14 BP 138/68 11/13/18 00:00 Pulse Ox 94 L 11/13/18 00:00 Narrative: GENERAL: NAD, AAOx3 HEENT: Scleral icterus. CARDIO: Regular rate and rhythm. RESP: Clear to auscultation. Breath sounds equal bilaterally. ABD: +BS, soft, Mild RUQ tenderness, nondistended. EXT: No edema. No obvious deformities. Results Labs CBC & Chem 7: 11/12/18 07:23 11/13/18 05:47 Imaging Cholangiopancreatography MRI 11/11/18 00:00 CONCLUSION: 1. Cholelithiasis and slightly distended gallbladder possibility of cholecystitis should be entertained with slight inflammatory change involving Gerota's fascia on the right as seen on the patient's CT examination. 2. The liver does not appear fatty based on this examination although the ultrasound has the appearance of fatty liver and the questioned mass on the patient's ultrasound may have been artifactually created or possibly focal sparing not clearly visualized by this technique. 3. There are areas of bright signal within T9 and T11 vertebrae not adequately characterized most likely benign and a follow-up is suggested with thoracic spine MRI in 3-6 months. Gallbladder Ultrasound 11/11/18 12:12 CONCLUSION: 1. Fatty liver with 2 areas of hypoechogenicity somewhat masslike may be focal sparing, however further characterization with abdominal MRI with and without contrast is suggested which could be done as a nonemergent study to further evaluate and exclude underlying mass. The patient's CT examination was negative without demonstrable masses. 2. No definite gallstones by ultrasound, however questionable small stones seen on the patient's CT examination and the gallbladder wall appears slightly thickened with questionable trace of pericholecystic fluid. Possibility of cholecystitis should be entertained in appropriate clinical setting. Abdomen/Pelvis CT 11/11/18 12:39 CONCLUSION: Questionable tiny stone within the gallbladder appears slightly distended with haziness of the Gerota's fascia on the right side partially extending into the anterior perinephric space and Morison's pouch. The exact source is not certain, however inflammatory process is a primary consideration. The liver appears fatty. Assessment and Plan Assessment (1) Hepatitis A: Code(s): B15.9 - Hepatitis A without hepatic coma Status: Acute (2) Elevated LFTs: Code(s): R94.5 - Abnormal results of liver function studies Status: Acute (3) Abdominal pain: Code(s): R10.9 - Unspecified abdominal pain Status: Acute (4) Nausea & vomiting: Code(s): R11.2 - Nausea with vomiting, unspecified Status: Acute (5) Asthma: Code(s): J45.909 - Unspecified asthma, uncomplicated Status: Chronic Plan Hepatitis A Elevated LFTs/Jaundice Abdominal pain/Nausea/vomiting - Pt is a 38 y/o male with asthma who presented to the ED at [facility] [place] on 11/11/18 for jaundice, nausea/vomiting, abd pain. He was seen in the ED on 11/03/18 with an asthma exacerbation. His labs in the ED on 11/03 noted an elevation in his LFTs with Tbili 1.4, AST 767, ALT 1487, AlkPhos 119. After being in the ED he reported increased soreness of the abdomen, sore throat, hoarseness of voice, nausea over the last 5 days. Then 3 days ago he had noted increased darkening of the urine, light color in his stool and jaundice. He noted increased nausea and vomiting with oral intake. He has had more side sided abdominal pain and cramping but he attributed this to soreness from coughing so much but his RUQ is very tender to the touch. - He presented back to the ED on 11/11/18 with these new complaints. His repeat labs in the ED on 11/11 noted Tbili 8.7, AST 833, ALT 2809, AlkPhos 156. - CT Abd/Pelvis which noted questionable tiny stone within the gallbladder appears slightly distended with haziness of the Gerota's fascia on the right side partially extending into the anterior perinephric space and Morison's pouch , and the liver appears fatty. - Gallbladder Ultrasound was then performed and noted a fatty liver with 2 areas of hypoechogenicity somewhat masslike may be focal sparing, no definite gallstones by ultrasound, however questionable small stones seen on the patient' s CT examination and the gallbladder wall appears slightly thickened with questionable trace of pericholecystic fluid. Possibility of cholecystitis should be entertained in appropriate clinical setting. - Pt was given IVF overnight - MRCP w&w/o contrast (11/11/18): 1. Cholelithiasis and slightly distended gallbladder possibility of cholecystitis should be entertained with slight inflammatory change involving Gerota's fascia on the right as seen on the patient's CT examination. 2. The liver does not appear fatty based on this examination although the ultrasound has the appearance of fatty liver and the questioned mass on the patient's ultrasound may have been artifactually created or possibly focal sparing not clearly visualized by this technique. 3. There are areas of bright signal within T9 and T11 vertebrae not adequately characterized most likely benign and a follow-up is suggested with thoracic spine MRI in 3-6 months. - Hepatitis panel was positive for Hep A IgM Ab, likely this is the cause for his elevated LFTs and his N/V and abd pain. - Monospot was negative. EBV is pending. Tylenol and salicylate level were negative. Check urine drug screen negative. - Repeat LFTs in AM - Cancel General Surgery consult, the case was discussed with Dr. Kim this morning. He will see the pt as an outpt. - His LFTs are continuing to improve: - 11/12/18 --> Tbili 8.1, AST 435, ALT 1863, AlkPhos 127 - 11/13/18 --> Tbili 6.8, AST 230. ALT 1364, AlkPhos 121 - Pt tolerating advanced diet. - Discussed Hepatitis A transmission and importance of thoroughly washing all fruits and vegetables as well as ensuring that he cooks meat to the appropriate temperature. Also discussed importance of bathroom cleanliness and washing his hands frequently. - Pt will need close outpt followup with his PCP for repeat labs to ensure continued improvement in his LFTs as well as further evaluation with an MRI of the thoracic spine to further evaluate the T9 and T11 - Pt is to followup with his PCP, Dr. Fenton, in 1 week. - Hepatic function panel ordered for 1 week after discharge with results to the pts PCP Asthma with recent exacerbation - Duonebs Q4H scheduled and Q2H PRN - tessalon pearls PRN - Spiriva Progress Note: Quality VTE Deep Vein Thrombosis/Pulmonary Embolism Present on Admission: No
[2018-11-13] MEDS: Senna/Docusate Sodium 8.6/50 MG Tablet PO SCH (08:24)
[2018-11-13] MEDS: Tiotropium Bromide 18 MCG/ACT Inhaler INH SCH (08:24)
[2018-11-13] MEDS: Sod Chloride 0.9% Inj 1,000 ML IV.CONT SCH (08:28)
[2018-11-14 00:09] LABS: EBV Virus Capsid Ag IgG Ab Positive (Negative); EBV Virus Capsid Ag IgM Ab Negative (Negative)
== END 2018-11-13 14:21 | disposition home or self-care (01) ==
LOC: NEPC 11:28 → NEDA 16:36 → N07 17:00
PROVIDERS: ADMIT Hospitalist; ATTEND Hospitalist
DX: B15.9 Hepatitis A without hepatic coma; K80.10 Calculus of gallbladder with chronic cholecystitis without obstruction; J45.909 Unspecified asthma, uncomplicated